=== PATIENT | male | born 1980 | race Asian ===

== ENCOUNTER 2016-07-01 13:23 | Outpatient (CLI) | payer BC ==
[2016-07-01 13:56] LABS: PLATELET COUNT 293 K/uL (142-355)
[2016-07-01 14:34] LABS: SODIUM 139 mmol/L (136-145)
== END 2016-07-01 19:26 | disposition home or self-care (01) ==
LOC: LABW 13:23
PROVIDERS: Specialist
DX: M25.522 Pain in left elbow (principal); M79.602 Pain in left arm; R20.2 Paresthesia of skin; M53.1 Cervicobrachial syndrome
CPT/HCPCS: 36415; 80053; 82085; 85027; 85651

== ENCOUNTER 2016-07-04 15:57 | Outpatient (CLI) | payer BC | END 2016-07-04 21:04 | disposition home or self-care (01) | LOC: RESP 15:57 | DX: M53.1 Cervicobrachial syndrome (principal); R20.2 Paresthesia of skin | CPT/HCPCS: 95885; 95911 ==

== ENCOUNTER 2016-12-26 10:42 | Outpatient (CLI) | payer BC | END 2016-12-26 12:00 | disposition home or self-care (01) | LOC: MRI 10:42 | DX: M54.12 Radiculopathy, cervical region (principal) ==

== ENCOUNTER 2017-08-03 23:44 | Emergency (ER) | payer BC ==
[~2017-08-03] VITALS: Ht 188 cm; Wt 88.9 kg
[2017-08-04 00:15] LABS: PLATELET COUNT 294 K/uL (142-355)
[2017-08-04 00:34] LABS: POTASSIUM 3.9 mmol/L (3.6-5.2)
[2017-08-04 00:53] VITALS: BP 123/54; TEMP 98.3
== END 2017-08-04 00:54 | disposition home or self-care (01) ==
LOC: ED 23:44
DX: R07.89 Other chest pain (principal); R00.0 Tachycardia, unspecified
CPT/HCPCS: 36415; 80053; 82550; 84484; 85027; 85610; 85730; 93005; 99283; J2550

== ENCOUNTER 2018-04-18 22:03 | Emergency (ER) | payer OTHER ==
[~2018-04-18] VITALS: Ht 188 cm; Wt 87.1 kg
[2018-04-19 01:24] VITALS: BP 131/88; TEMP 98.2
== END 2018-04-19 01:25 | disposition home or self-care (01) ==
LOC: ED 22:03
PROC: 2W3CX1Z Immobilization of Right Lower Arm using Splint (ICD-10-PCS; principal; 2018-04-18)
DX: S62.396A Other fracture of fifth metacarpal bone, right hand, initial encounter for closed fracture (principal); W22.8XXA Striking against or struck by other objects, initial encounter; Y92.89 Other specified places as the place of occurrence of the external cause
CPT/HCPCS: 99283

== ENCOUNTER 2018-04-30 11:15 | Outpatient (CLI) | payer OTHER | END 2018-04-30 20:34 | disposition home or self-care (01) | LOC: RAD 11:15 | DX: S62.339D Displaced fracture of neck of unspecified metacarpal bone, subsequent encounter for fracture with routine healing (principal) ==

== ENCOUNTER 2018-09-24 16:52 | Emergency (ER) | payer OTHER ==
[~2018-09-24] VITALS: Ht 190.5 cm; Wt 89.8 kg
[2018-09-24 17:52] LABS: PLATELET COUNT 274 K/uL (142-355)
[2018-09-24 18:01] LABS: POTASSIUM 4.3 mmol/L (3.6-5.2); SODIUM 139 mmol/L (136-145)
[2018-09-24 18:07] LABS: PARTIAL THROMBOPLASTIN TIME 23.2 SECONDS (24.5-33.6)
[2018-09-24 19:04] VITALS: BP 135/78; TEMP 97.8
== END 2018-09-24 19:04 | disposition home or self-care (01) ==
LOC: ED 16:52
PROVIDERS: Hospitalist
DX: R07.89 Other chest pain (principal); M79.18 Myalgia, other site; R06.02 Shortness of breath
CPT/HCPCS: 36415; 80053; 82550; 82553; 83880; 84484; 85027; 85379; 85610; 85730; 93005; 96374; 99284; J1885

== ENCOUNTER 2018-12-08 13:03 | Outpatient (CLI) | payer OTHER | END 2018-12-08 19:43 | disposition home or self-care (01) | LOC: RESP 13:03 | DX: M54.12 Radiculopathy, cervical region (principal) ==

== ENCOUNTER 2019-01-19 08:28 | Day surgery (SDC) | payer OTHER | END 2019-01-19 09:30 | disposition home or self-care (01) | LOC: OR 08:28 → EDSEX 08:28 → OR 09:30 | PROC: 3E0R33Z Introduction of Anti-inflammatory into Spinal Canal, Percutaneous Approach (ICD-10-PCS; principal; 2019-01-19) | PROC: B01BYZZ Fluoroscopy of Spinal Cord using Other Contrast (ICD-10-PCS; 2019-01-19) | DX: M50.123 Cervical disc disorder at C6-C7 level with radiculopathy (principal) | CPT/HCPCS: J1020 ==

== ENCOUNTER 2019-09-06 23:36 | Emergency (ER) | payer OTHER ==
[~2019-09-06] VITALS: Ht 190.5 cm; Wt 93.0 kg
[2019-09-07 00:40] VITALS: BP 152/100; TEMP 98.4
== END 2019-09-07 00:40 | disposition home or self-care (01) ==
LOC: ED 23:36
DX: S50.362A Insect bite (nonvenomous) of left elbow, initial encounter (principal); W57.XXXA Bitten or stung by nonvenomous insect and other nonvenomous arthropods, initial encounter; Y92.89 Other specified places as the place of occurrence of the external cause
CPT/HCPCS: 96372; 99282; J1020

== ENCOUNTER 2019-10-08 11:11 | Outpatient (CLI) | payer OTHER | END 2019-10-08 19:42 | disposition home or self-care (01) | LOC: MRI 11:11 | PROVIDERS: ATTEND Specialist | DX: M54.12 Radiculopathy, cervical region (principal); M53.1 Cervicobrachial syndrome ==

== ENCOUNTER 2022-08-27 16:48 | Emergency (ER) | payer OTHER ==
[~2022-08-27] VITALS: Ht 188 cm; Wt 93.0 kg
[2022-08-27 17:22] LABS: PLATELET COUNT 296 K/uL (142-355)
[2022-08-27 18:06] VITALS: BP 147/96; TEMP 98.2
== END 2022-08-27 18:08 | disposition home or self-care (01) ==
LOC: ED 16:48
PROVIDERS: Family Medicine
DX: L01.00 Impetigo, unspecified (principal); R21 Rash and other nonspecific skin eruption
CPT/HCPCS: 36415; 80053; 85027; 96365; 99284

== ENCOUNTER 2022-08-30 20:44 | Emergency (ER) | payer OTHER ==
[~2022-08-30] VITALS: Ht 188 cm; Wt 90.7 kg
[2022-08-30 20:44] VITALS: BP 131/89; TEMP 97.7
== END 2022-08-30 23:45 | disposition home or self-care (01) ==
LOC: ED 20:44
DX: N48.89 Other specified disorders of penis (principal); A64 Unspecified sexually transmitted disease
CPT/HCPCS: 81002; 87490; 87590; 96372; 99283; J0696